=== PATIENT | male | born 1945 | race Caucasian/White ===

== ENCOUNTER → 2020-06-30 10:34 | Outpatient (BNVA) | payer MEDICARE, SELFPAY | PROVIDERS: PCP Family Medicine; Visit Provider Urology | DX: Z13.89 Encounter for screening for other disorder (principal) | CPT/HCPCS: 99212 ==

== ENCOUNTER → 2020-10-28 09:18 | Outpatient (BNVA) | payer MEDICARE, SELFPAY | PROVIDERS: PCP Family Medicine; Visit Provider Urology | DX: N32.81 Overactive bladder (principal); N32.0 Bladder-neck obstruction | CPT/HCPCS: 51798; 99212 ==

== ENCOUNTER → 2021-05-04 09:43 | Outpatient (BNVA) | payer MEDICARE, SELFPAY | PROVIDERS: PCP Family Medicine; Visit Provider Urology | DX: N32.81 Overactive bladder (principal); N32.0 Bladder-neck obstruction; N28.1 Cyst of kidney, acquired; E11.9 Type 2 diabetes mellitus without complications; I10 Essential (primary) hypertension; Z87.891 Personal history of nicotine dependence | CPT/HCPCS: 51798; 99212 ==

== ENCOUNTER → 2021-07-07 11:21 | Outpatient (BNVA) | payer MEDICARE, SELFPAY | PROVIDERS: PCP Family Medicine; Visit Provider Psychiatry & Neurology Neurology | DX: G20 Parkinson's disease (principal); R44.3 Hallucinations, unspecified; R41.3 Other amnesia; I95.1 Orthostatic hypotension | CPT/HCPCS: 99212 ==

== ENCOUNTER → 2021-11-19 09:28 | Outpatient (BNVA) | payer MEDICARE, SELFPAY | PROVIDERS: PCP Family Medicine; Visit Provider Urology | DX: N32.81 Overactive bladder (principal) | CPT/HCPCS: 51798; 99212 ==

== ENCOUNTER → 2021-11-22 10:58 | Outpatient (BNVA) | payer MEDICARE, SELFPAY | PROVIDERS: PCP Family Medicine; Visit Provider Psychiatry & Neurology Neurology | DX: G20 Parkinson's disease (principal); I95.1 Orthostatic hypotension; R41.3 Other amnesia; R44.3 Hallucinations, unspecified | CPT/HCPCS: 99212 ==

== ENCOUNTER → 2022-05-20 09:52 | Outpatient (BNVA) | payer MEDICARE, SELFPAY | PROVIDERS: PCP Family Medicine; Visit Provider Urology | DX: N32.81 Overactive bladder (principal) | CPT/HCPCS: 51798; 99212 ==

== ENCOUNTER → 2022-05-23 09:24 | Outpatient (BNVA) | payer MEDICARE, SELFPAY | PROVIDERS: PCP Family Medicine; Visit Provider Psychiatry & Neurology Neurology | DX: G20 Parkinson's disease (principal); I95.1 Orthostatic hypotension; R41.3 Other amnesia; R44.3 Hallucinations, unspecified | CPT/HCPCS: 99212 ==

== ENCOUNTER → 2022-11-21 08:41 | Outpatient (BNVA) | payer MEDICARE, SELFPAY | PROVIDERS: PCP Family Medicine; Visit Provider Psychiatry & Neurology Neurology | DX: G20 Parkinson's disease (principal); I95.1 Orthostatic hypotension; R41.3 Other amnesia; R44.3 Hallucinations, unspecified | CPT/HCPCS: 99212 ==

== ENCOUNTER → 2022-11-29 10:01 | Outpatient (BNVA) | payer MEDICARE, SELFPAY | PROVIDERS: Visit Provider Urology | DX: N32.81 Overactive bladder (principal); N32.0 Bladder-neck obstruction | CPT/HCPCS: 51798; 99212 ==

== ENCOUNTER 2023-05-30 08:46 | Outpatient (AMB) | payer MEDICARE, SELFPAY ==
--- NOTE | 2023-05-30 08:56 | A.OFFVIS_ITS ---
Intake Vital Signs 05/30/23 08:59 Weight 163 lb BP 110/76 Blood Pressure Location Rt brachial Position Sitting Respiration 16 Pulse 62 Pulse Source Pulse Oximeter Pulse Oximetry (%) 99 Oxygen Delivery Method Room Air Intake Visit Reasons: f/u appt for Parkinson's - LVM Intake Note: Pt presents for 6 month follow up for Parkinson's. Lasting Machine Operator Required: No Allergies No Known Allergies Allergy (Verified 05/30/23 08:59) HPI HPI Comments History of Present Illness Details 77y/o male with parkinsons disease, [place] ucinations and orthostatic hypotension comes for follow up visit. Pt fell in March at home and admitted to [facility] to r/o stroke. Brain MRI was negative, overall suspecting progression of dementia. CTA of head and neck found that severe left internal carotid artery stenosis, but vascular surgery team decided no acute surgery intervention needed. Pt is currently at rehab. Memantine was discontinued during the hospitalization as it may cause psychosis. Pt's reports that his tremor has been stable but can be worse with agitation. He is on Rytary 36.25-145 mg, 10 capsules a day, 3-2-3-2. He has short term memory issues which is worse. He has rare mild hallucinations. He can be up during the night and fatigues easily . Pt denies dizziness but feels tired. He needs help with some ADLS. His constipation managed with MiraLax. Speech is OK, needs to crush his pills to swallow. [facility] Medical History Bladder outlet obstruction Cataract Diabetes mellitus, type II HTN (hypertension) Renal cyst, acquired Urgency incontinence Surgical History History of surgery Family History Brother Pneumonia Family/Other Oxygen deficit Social History Alcohol intake: current Alcohol intake frequency: holidays/special occasions only Patient Tobacco Use Status: Former Tobacco user Quit Date: 12-13 years ago Review of Systems Const All systems reviewed & are unremarkable except as noted in HPI and below Physical Exam Vital Signs: Last Vital Signs Pulse 62 05/30/23 08:59 Resp 16 05/30/23 08:59 BP 110/76 05/30/23 08:59 Pulse Ox 99 05/30/23 08:59 Oxygen Delivery Method Room Air 05/30/23 08:59 Const Other: decreased blink and facial expression General: cooperative and healthy appearing Nutritional Appearance: average body habitus Orientation/consciousness: oriented to place HEENT Head: Yes normal to inspection Neck Other: mild antecollis and restricted range of motion Neuro Other: Mild decreased blink and facial expression Voice- hypophonia- mild Mild dyskinesias Fine Finger movements - mild decreased peggy l>R Alternating hand movements - decreased peggy Hand movements - decreased peggy No cog wheel rigidity Pt is in stretcher today. General: oriented to place Cranial nerves: Yes CN's II-XII intact bilaterally, Yes Bilaterally intact EOM present, Yes Normal facial strength present and Yes Midline tongue present Assessment & Plan Assessment & Plan (1) Parkinson's disease: Code(s): G20 - Parkinson's disease (2) Orthostatic hypotension: Code(s): I95.1 - Orthostatic hypotension (3) Memory change: Code(s): R41.3 - Other amnesia (4) Hallucinations: Code(s): R44.3 - Hallucinations, unspecified Plan Continue Rytary 36.25/145 3-2-3-2 (total 10 caps a day ) Increase fluid intake. Continue exercise. Coding Level of Care Code Est Pt Level 4 (17812) Diagnoses Parkinson's disease G20 Orthostatic hypotension I95.1 Memory change R41.3 Hallucinations R44.3
[2023-05-30 08:59] VITALS: BP 110/76; PULSE 62; RESP 16; O2SAT 99
== END 2023-05-30 09:42 | disposition home or self-care (01) ==
PROVIDERS: PCP Family Medicine; Visit Provider Nurse Practitioner Family
DX: G20.B1 Parkinson's disease with dyskinesia, without mention of fluctuations (principal); I95.1 Orthostatic hypotension; R41.3 Other amnesia; R44.3 Hallucinations, unspecified
CPT/HCPCS: 99214

== ENCOUNTER → 2023-05-30 08:46 | Outpatient (BNVA) | payer MEDICARE, SELFPAY | PROVIDERS: PCP Family Medicine; Visit Provider Nurse Practitioner Family | DX: G20.A1 Parkinson's disease without dyskinesia, without mention of fluctuations (principal); I95.1 Orthostatic hypotension; R41.3 Other amnesia; R44.3 Hallucinations, unspecified | CPT/HCPCS: 99212 ==

== ENCOUNTER 2023-11-13 13:07 | Outpatient (AMB) | payer MEDICARE, SELFPAY ==
--- NOTE | 2023-11-13 13:09 | A.OFFVIS_ITS ---
Vital Signs 11/13/23 13:10 Weight 146 lb 2 oz BP 102/68 Blood Pressure Location Rt brachial Position Sitting Respiration 16 Pulse 71 Pulse Source Pulse Oximeter Pulse Oximetry (%) 99 Oxygen Delivery Method Room Air Intake Visit Reasons: Follow up - mailbox full Intake Note: Pt presents for a 6 month follow up for Parkinson's. Assistant Professor Of Art Required: No Allergies No Known Allergies Allergy (Verified 11/13/23 13:10) HPI Comments Details: 78y/o male with parkinsons disease, hallucinations, dementia and orthostatic hypotension comes for follow up visit. He is at [facility] for [facility] [place] He is doing betetr , eating good He has irregular sleep schedule, day night reversal Pt fell in March at home and admitted to [facility] to r/o stroke. Brain MRI was negative, overall suspecting progression of dementia. CTA of head and neck found that severe left internal carotid artery stenosis, but vascular surgery team decided no acute surgery intervention needed. Pt's reports that his tremor has been stable but can be worse with agitat ion. He is on Rytary 36.25-145 mg, 8 capsules a day, 2 caps qid He has short term memory issues which is worse. He has rare mild hallucinations. He can be up during the night and fatigues easily . Pt denies dizziness but feels tired. He needs help with some ADLS. His constipation managed with MiraLax. Speech is OK, needs to crush his pills to swallow. [facility] Medical History (Updated 11/13/23 @ 13:27 by Ann Marie Abel MD) Parkinson's disease with dyskinesia Parkinson's disease dementia Cataract HTN (hypertension) Diabetes mellitus, type II Renal cyst, acquired Bladder outlet obstruction Urgency incontinence Surgical History History of surgery Family History Brother Pneumonia Family/Other Oxygen deficit Social History Alcohol intake: current Alcohol intake frequency: holidays/special occasions only Patient Tobacco Use Status: Former Tobacco user Physical Exam Vital Signs: Last Vital Signs Pulse 71 11/13/23 13:10 Resp 16 11/13/23 13:10 BP 102/68 11/13/23 13:10 Pulse Ox 99 11/13/23 13:10 Oxygen Delivery Method Room Air 11/13/23 13:10 Const Other: decreased blink and facial expression General: cooperative and healthy appearing Nutritional Appearance: average body habitus Orientation/consciousness: oriented to place HEENT Head: Yes normal to inspection Neck Other: mild antecollis and restricted range of motion Neuro Other: Mild decreased blink and facial expression Voice- hypophonia- mild Fine Finger movements - mild decreased peggy l>R Alternating hand movements - decreased peggy Hand movements - decreased peggy No cog wheel rigidity Pt is in wheelchair today General: oriented to place Cranial nerves: Yes CN's II-XII intact bilaterally, Yes Bilaterally intact EOM present, Yes Normal facial strength present and Yes Midline tongue present Assessment & Plan Assessment & Plan (1) Parkinson's disease with dyskinesia: Code(s): G20.B1 - Parkinson's disease with dyskinesia, without mention of fluctuations Category: Medical (2) Hallucinations: Code(s): R44.3 - Hallucinations, unspecified Category: Medical (3) Parkinson's disease dementia: Code(s): G20.A1 - Parkinson's disease without dyskinesia, without mention of fluctuations; F02.80 - Dementia in other diseases classified elsewhere, unspecified severity, without behavioral disturbance, psychotic disturbance, mood disturbance, and anxiety Category: Medical (4) Orthostatic hypotension: Code(s): I95.1 - Orthostatic hypotension Category: Medical Plan Continue Rytary 36.25/145 2-2-2-2 (total 10 caps a day ) Consider adding tarzadone 50 mg qhs or quetiapine 25 mgqhs for sleep. Midodrine 5mg tid continue donepezil 5 mg qd Continue exercise. Medications: Discontinued memantine Discontinued Reason: Doctor's Order 10 mg PO BID 90 days 180 tabs 2RF Coding Level of Care Code Est Pt Level 4 (24182) Complex EM visit Add On G2211 Diagnoses Parkinson's disease with dyskinesia G20.B1 Hallucinations R44.3 Parkinson's disease dementia G20.A1; F02.80 Orthostatic hypotension I95.1
[2023-11-13 13:10] VITALS: BP 102/68; PULSE 71; RESP 16; O2SAT 99
== END 2023-11-13 13:36 | disposition home or self-care (01) ==
PROVIDERS: PCP Family Medicine; Visit Provider Psychiatry & Neurology Neurology
DX: G20.B1 Parkinson's disease with dyskinesia, without mention of fluctuations (principal); R44.3 Hallucinations, unspecified; G20.A1 Parkinson's disease without dyskinesia, without mention of fluctuations; F02.80 Dementia in other diseases classified elsewhere, unspecified severity, without behavioral disturbance, psychotic disturbance, mood disturbance, and anxiety; I95.1 Orthostatic hypotension
CPT/HCPCS: 99214; G2211

== ENCOUNTER → 2023-11-13 13:07 | Outpatient (BNVA) | payer MEDICARE, SELFPAY | PROVIDERS: PCP Family Medicine; Visit Provider Psychiatry & Neurology Neurology | DX: G20.B1 Parkinson's disease with dyskinesia, without mention of fluctuations (principal); R44.3 Hallucinations, unspecified; I95.1 Orthostatic hypotension; F02.80 Dementia in other diseases classified elsewhere, unspecified severity, without behavioral disturbance, psychotic disturbance, mood disturbance, and anxiety | CPT/HCPCS: 99212 ==

== ENCOUNTER 2024-12-04 12:58 | Outpatient (AMB) | payer MEDICARE, SELFPAY ==
--- NOTE | 2024-12-04 12:52 | A.OFFVIS_ITS ---
Vital Signs 12/04/24 13:06 BP 96/60 Blood Pressure Location Lt brachial Position Sitting Pulse 68 Pulse Source Pulse Oximeter Pulse Oximetry (%) 97 Oxygen Delivery Method Room Air Intake Visit Reasons: Follow up Intake Note: Patient following up for Parkinson Allergies No Known Allergies Allergy (Verified 12/04/24 13:02) HPI Comments Details: 79y/o male with parkinsons disease, hallucinations, dementia and orthostatic hypotension comes for follow up visit. No major change in the past 1 year He is at [facility] for [facility] [place] He is feeding himself . doing OK He has some mild hallucinations. Brain MRI was negative, overall suspecting progression of dementia. CTA of head and neck found that severe left internal carotid artery stenosis, but vascular surgery team decided no acute surgery intervention needed. Pt's reports that his tremor has been stable but can be worse with agitation. He is on Rytary 36.25-145 mg, 8 capsules a day, 2 caps qid He has short term memory issues which is worse. He has rare mild hallucinations. He can be up during the night and fatigues easily . Pt denies dizziness but feels tired. He needs help with some ADLS. His constipation managed with MiraLax. Speech is slow [facility] Medical History Parkinson's disease with dyskinesia Parkinson's disease dementia Cataract HTN (hypertension) Diabetes mellitus, type II Renal cyst, acquired Bladder outlet obstruction Urgency incontinence Surgical History History of surgery Family History Brother Pneumonia Family/Other Oxygen deficit Social History Alcohol intake: current Alcohol intake frequency: holidays/special occasions only Patient Tobacco Use Status: Former Tobacco user Physical Exam Vital Signs: Last Vital Signs Pulse 68 12/04/24 13:06 BP 96/60 12/04/24 13:06 Pulse Ox 97 12/04/24 13:06 Oxygen Delivery Method Room Air 12/04/24 13:06 Const Other: severely decreased blink and facial expression General: cooperative and healthy appearing Nutritional Appearance: average body habitus Orientation/consciousness: oriented to place HEENT Head: Yes normal to inspection Neck Other: mild antecollis and restricted range of motion Neuro Other: Moderate decreased blink and facial expression Has trouble following directions Voice- hypophonia- severe Fine Finger movements -severe decreased peggy l>R Alternating hand movements - decreased peggy Hand movements - decreased peggy No cog wheel rigidity Pt is in wheelchair today General: oriented to place Cranial nerves: Yes CN's II-XII intact bilaterally, Yes Bilaterally intact EOM present, Yes Normal facial strength present and Yes Midline tongue present Assessment & Plan Assessment & Plan (1) Parkinson's disease with dyskinesia: Code(s): G20.B1 - Parkinson's disease with dyskinesia, without mention of fluctuations Category: Medical Qualifiers: Fluctuating manifestations: with fluctuating manifestations Qualified Code(s): G20.B2 - Parkinson's disease with dyskinesia, with fluctuations (2) Hallucinations: Code(s): R44.3 - Hallucinations, unspecified Category: Medical (3) Parkinson's disease dementia: Code(s): G20.A1 - Parkinson's disease without dyskinesia, without mention of fluctuations; F02.80 - Dementia in other diseases classified elsewhere, unspecified severity, without behavioral disturbance, psychotic disturbance, mood disturbance, and anxiety Category: Medical (4) Orthostatic hypotension: Code(s): I95.1 - Orthostatic hypotension Category: Medical Plan Continue Rytary 36.25/145 2-2-2-2 (total 8 caps a day ) continue donepezil 5 mg qd Continue supportive care. F/u as needed Coding Level of Care Code Est Pt Level 4 (11557) Diagnoses Parkinson's disease with dyskinesia and fluctuating manifestations G20.B2 Fluctuating manifestations: with fluctuating manifestations Hallucinations R44.3 Parkinson's disease dementia G20.A1; F02.80 Orthostatic hypotension I95.1
[2024-12-04 13:06] VITALS: BP 96/60; PULSE 68; O2SAT 97
--- OUTSIDE RECORDS SUMMARY | 2024-12-04 13:30 | XMS_ITS | Clinical Summary ---
Author Organization [facility] Address [address] [place] [address] Care Team Providers Care Load Planner Name Role Phone Kristian Coronado DO Primary Care Provider [phone] Surgical History Surgery Date Site/Laterality Comments HIP ARTHROPLASTY PROCEDURE: HISTORICAL HIP REPLACEMENT; COMMENT: 2 times- 9 years ago OTHER SURGICAL HISTORY PROCEDURE: [place] TENOTOMY PRQ ACHILLES TENDON SPX LOCAL ANES; COMMENT: 30 yrs ago APPENDECTOMY PROCEDURE: HISTORICAL APPENDECTOMY; COMMENT: 60 yrs ago TONSILLECTOMY PROCEDURE: HISTORICAL TONSILLECTOMY; COMMENT: 25 yrs ago Family History Medical History Relation Name Comments Alzheimer's disease Father Stomach cancer Mother Relation Name Status Comments Father Mother Social History Tobacco Use Types Packs/Day Years Used Date Smoking Tobacco: Former Smokeless Tobacco: Former Alcohol Use Standard Drinks/Week Comments Yes 0 (1 standard drink = 0.6 oz pur e alcohol) Sex and Gender Information Value Date Recorded Sex Assigned at Not on file Legal Sex Male 3:22 PM EST Gender Identity Not on file Sexual Orientation Not on file Obstetrics History Plan of Treatment Health Maintenance Due Date Last Done Comments COVID-19 Vaccine (#1) 1950 DTaP,Tdap,and Td Vaccines (1 - Tdap) 01/21/1964 Pneumococcal Vaccine: 50+ Ye ars (1 of 2 - PCV) 01/21/1964 Zoster Vaccines (1 of 2) 01/21/1964 RSV Immunization Adult Patie nts (1 - 1-dose 75+ series) 01/21/2020 Cholesterol Screening (Lipid Panel) 08/01/2024 Depression Screening 08/01/2024 Falls Risk Assessment 08/01/2024 Hepatitis C Screening 08/01/2024 Social Influencers of Health Screening 08/01/2024 Influenza Vaccine (Season Ended) 2025 HIB Vaccines Aged Out No longer eligi ble based on patient's age to complete this topic HPV Vaccines Aged Out No longer eligi ble based on patient's age to complete this topic Hepatitis A Vaccines Aged Out No long er eligible based on patient's age to complete this topic Hepatitis B Vaccines Aged Out No long er eligible based on patient's age to complete this topic IPV Vaccines Aged Out No longer eligi ble based on patient's age to complete this topic MMR Vaccines Aged Out No longer eligi ble based on patient's age to complete this topic Meningococcal ACWY Vaccine Aged Out N o longer eligible based on patient's age to complete this topic Meningococcal B Vaccine Aged Out No l onger eligible based on patient's age to complete this topic RSV Immunization Patients Un siena 20 months Aged Out No longer eligible b ased on patient's age to complete this topic Varicella Vaccines Aged Out No longer eligible based on patient's age to complete this topic Care Teams Load Planner Relationship Specialty Start Date End Date Kristian Coronado DO [address] [place] [address] [phone] PCP - General Internal Medicine 08/13/18
== END 2024-12-04 13:27 | disposition home or self-care (01) ==
LOC: HO.HSMS 12:59
PROVIDERS: PCP Family Medicine; Visit Provider Psychiatry & Neurology Neurology
DX: G20.B2 Parkinson's disease with dyskinesia, with fluctuations (principal); R44.3 Hallucinations, unspecified; G20.A1 Parkinson's disease without dyskinesia, without mention of fluctuations; F02.80 Dementia in other diseases classified elsewhere, unspecified severity, without behavioral disturbance, psychotic disturbance, mood disturbance, and anxiety; I95.1 Orthostatic hypotension
CPT/HCPCS: 99214

== ENCOUNTER → 2024-12-04 12:58 | Outpatient (BNVA) | payer MEDICARE, SELFPAY | PROVIDERS: PCP Family Medicine; Visit Provider Psychiatry & Neurology Neurology | DX: G20.B1 Parkinson's disease with dyskinesia, without mention of fluctuations (principal); R44.2 Other hallucinations; F02.80 Dementia in other diseases classified elsewhere, unspecified severity, without behavioral disturbance, psychotic disturbance, mood disturbance, and anxiety; I95.1 Orthostatic hypotension | CPT/HCPCS: 99212 ==